=== PATIENT | male | born 1955 | race Asian ===

== ENCOUNTER 2019-03-19 09:05 | Inpatient (IN) | payer MEDICAID ==
[~2019-03-19] VITALS: Ht 167.6 cm; Wt 65.8 kg
[2019-03-19] VITALS (28 sets, daily range): BP systolic 56–115; BP diastolic 20–79
--- NOTE | 2019-03-19 09:19 | NUR ---
ED Nurse Note: Patient brought in by ambulance from home due to constand right lower abdominal pain for the past 2-3 weeks with nausea, loss of appetite. Patient unable to eat well due to increased abdominal pain, and did not have bowel movement for "long time" Patient states he lost "a lot of weight" over 1 year. Patient appears pale and weak. Denies any vomiting or BM with blood. Patient did not see any doctor for the past 10 years. Patient had 1st visit with PCP yesterday and PCP referred patient to [facility]. Placed patient on nuclear monitoring technician. Provided comfort measures. Bed in lowest positon.
--- NOTE | 2019-03-19 09:22 | NUR ---
ED Nurse Note: Pt brought into ER w/ c/o abdominal pain 8/10 for 2 weeks with nausea. Pt states he has felt weak over past year. Pt states history of stomach partial removal, but no cancer. Pt is alert and orientedx4, ambulatory. Pt set up on monitor.
[2019-03-19] MEDS ORDERED: Omnipaque-300 100ml vial INJ PRN (09:30)
[2019-03-19] MEDS ORDERED: Morphine Sulfate 4mg/ml Inj (IV USE ONLY) IVP ONE ×3 (09:30→16:45)
--- NOTE | 2019-03-19 09:30 | NUR ---
ED Nurse Note: Report given to GAMALIEL Gregory.
--- NOTE | 2019-03-19 09:31 | NUR ---
ED Nurse Note: Patient reports decreased pain when he lies on the left side.
[2019-03-19 09:37] LABS: HEMATOCRIT 49.2 % (42.0-52.0); HEMOGLOBIN 15.1 G/DL (14.2-18.0); MEAN CORPUSCULAR VOLUME 68 FL (80-99); PLATELET COUNT 677 K/UL (150-450); RED BLOOD COUNT 7.26 M/UL (4.70-6.10); RED CELL DISTRIBUTION WIDTH 15.8 % (11.6-14.8)
[2019-03-19 09:44] LABS: WHITE BLOOD COUNT 66.4 K/UL (4.8-10.8)
[2019-03-19 09:47] LABS: ANION GAP 21 mmol/L (5-15); BLOOD UREA NITROGEN 35 mg/dL (7-18); CALCIUM 8.4 MG/DL (8.5-10.1); CARBON DIOXIDE 16 MMOL/L (21-32); CHLORIDE 96 MMOL/L (98-107); CREATININE 2.6 MG/DL (0.55-1.30); POTASSIUM 4.9 MMOL/L (3.5-5.1); SODIUM 133 MMOL/L (136-145)
[2019-03-19 09:51] LABS: ALBUMIN 2.2 G/DL (3.4-5.0); ALBUMIN/GLOBULIN RATIO 0.6 (1.0-2.7); ALKALINE PHOSPHATASE 86 U/L (46-116); ASPARTATE AMINO TRANSFERASE 17 U/L (15-37); BILIRUBIN,TOTAL 0.5 MG/DL (0.2-1.0)
--- NOTE | 2019-03-19 10:00 | NUR ---
ED Nurse Note: Dr Jamison aware pt HR is 128.
--- NOTE | 2019-03-19 10:01 | NUR ---
ED Nurse Note: Dr Jamison notified BP 76/45 and HR 130. Pt placed in Trendelenburg and IV fluids given.
[2019-03-19 10:17] LABS: ALANINE AMINOTRANSFERASE 17 U/L (12-78)
--- NOTE | 2019-03-19 10:59 | Diagnostic Imaging Report ---
Indication: Abdominal pain Technique: Spiral acquisitions obtained through the abdomen and pelvis. No oral contrast utilized, per emergency room physician request No IV contrast utilized, due to renal insufficiency.. Multiplanar reconstructions were generated. Total dose length product 9 one mGycm. CTDIvol(s) 15 mGy. Dose reduction achieved using automated exposure control Comparison: Findings: Lack of enteric contrast limits assessment of the GI tract. There is marked wall thickening of much of the colon. This is particularly striking in the cecum and ascending colon as well as in the mid sigmoid colon, the latter demonstrating considerable pericolonic inflammatory change. There is also considerable wall thickening of the terminal ileum. The ascending colon is also distended appears to be filled with soft tissue, although no downstream obstructive pathology is evident. There is mesenteric root lymphadenopathy, particularly prominent in the right lower quadrant where nodes measure up to 2 cm in diameter. There is extensive infiltration of the mesenteric fat and considerable mesenteric venous congestion. There is a small to moderate amount of ascites fluid. No free intraperitoneal gas. Lack of IV contrast limits assessment of the solid organs. The liver demonstrates equivocal slight surface nodularity. No definite focal abnormality demonstrated. The gallbladder, bile ducts, pancreas, spleen, adrenals are unremarkable. The kidneys demonstrate multiple cysts bilaterally. There are also bilateral subcentimeter low-attenuation renal lesions which are too small to characterize. No renal or ureteral calculi, hydronephrosis, or hydroureter. No pelvic mass or adenopathy. There is a small right pleural effusion. The lung bases are otherwise clear. The bones demonstrate degenerative spondylosis changes. Impression: Wall thickening of much of the colon and also the distal ileum. Surrounding pericolonic inflammatory changes. Findings are suspicious for colitis/enteritis Distention of the cecum, which appears to be filled with soft tissue material. This may just represent thickened wall related to the colitis, but the possibility of neoplasm should also be considered. Right lower quadrant and generalized mesenteric root lymphadenopathy. May be reactive secondary to the enteric inflammation. However, the size and distribution of the nodes in the right lower quadrant raises concern for metastatic lymphadenopathy, particularly in view of the cecal changes described above Ascites. Could be secondary to the mesenteric/colonic changes, or could be a manifestation of liver disease among other possibilities. There is generalized congestion of the mesenteric fat. Equivocal slight hepatic surface nodularity, could indicate early cirrhotic change if real. Consider sonography for better characterization. Small right pleural effusion Bilateral renal cysts. Bilateral subcentimeter low-attenuation renal lesions, too small to characterize, most likely benign simple cysts. No further follow-up necessary. Degenerative spondylosis incidentally noted The CT scanner at [facility] is accredited by the [employer] and the scans are performed using protocols designed to limit radiation exposure to as low as reasonably achievable to attain images of sufficient resolution adequate for diagnostic evaluation.
--- NOTE | 2019-03-19 12:00 | NUR ---
ED Nurse Note: Dr Jamison aware that pt unable to urinate and refuses straight cath.
[2019-03-19] MEDS ORDERED: Morphine Sulfate 2mg/ml Inj(IV/IM USE ONLY) IVP ONE (13:00)
--- NOTE | 2019-03-19 13:06 | Emergency Room Report ---
History of Present Illness General Chief Complaint: Abdominal Pain Source: Patient, Family Member Present Illness HPI 63-year-old male presents ED for evaluation. Brought in by EMS from home. Complaining of abdominal pain and vomiting which started at 2 AM. Pain is 10 out of 10, sharp, nonradiating. Denies fevers or chills. Denies chest pain or shortness of breath. Family at bedside states that patient has prior history of partial gastrectomy. Was not feeling well so went to the doctor yesterday was told to go to [facility] but patient did not. No other aggravating relieving factors. Denies any other associated symptoms Allergies: Coded Allergies: No Known Allergies (Unverified , 03/19/19) Patient History Past Medical History: none Past Surgical History: other - gastrectomy Pertinent Family History: none Social History: Denies: smoking, alcohol use, drug use Immunizations: UTD Reviewed Nursing Documentation: PMH: Agreed; PSxH: Agreed Nursing Documentation-PMH Past Medical History: No History, Except For Hx Gastrointestinal Problems: Yes - partial gastrectomy Review of Systems All Other Systems: negative except mentioned in HPI Physical Exam Vital Signs Date Time Temp Pulse Resp B/P (MAP) Pulse Ox O2 Delivery O2 Flow Rate FiO2 03/19/19 09:01 97.9 120 16 110/76 (87) 97 Room Air Sp02 EP Interpretation: reviewed, normal General Appearance: alert, GCS 15, non-toxic, mild distress, cachetic, thin Head: normocephalic, atraumatic Eyes: bilateral eye normal inspection, bilateral eye PERRL ENT: hearing grossly normal, normal pharynx, no angioedema, normal voice Neck: full range of motion, supple/symm/no masses Respiratory: chest non-tender, lungs clear, normal breath sounds, speaking full sentences Cardiovascular #1: no edema, tachycardia Cardiovascular #2: 2+ carotid (R), 2+ carotid (L), 2+ radial (R), 2+ radial (L) , 2+ dorsalis pedis (R), 2+ dorsalis pedis (L) Gastrointestinal: normal bowel sounds, soft, non-distended, no guarding, no rebound, tenderness Rectal: deferred Genitourinary: normal inspection, no CVA tenderness Musculoskeletal: back normal, normal range of motion, gait/station normal, non- tender Neurologic: alert, motor strength/tone normal, oriented x3, sensory intact, responsive, speech normal Psychiatric: judgement/insight normal, memory normal, mood/affect normal, no suicidal/homicidal ideation Reflexes: 3+ bicep (R), 3+ bicep (L), 3+ tricep (R), 3+ tricep (L), 3+ knee (R) , 3+ knee (L) Skin: other - see nursing skin notes Lymphatic: no adenopathy Procedures Critical Care Time Critical Care Time i. I feel this is a highly complex case requiring extensive working including EKG/Rhythm strip, Xray/CT/US, Blood/urine lab work, repeat exams while in ED, and administration of strong opiates/narcotics for pain control, admission to hospital or close patient follow up. Total time: 60 min bedside evaluation and treatment excludes procedures (EKG). Reason for critical care: severe sepsis, hypotension, colitis, renal insufficiency Possible complications: hypotension, hypertension, AR, shock, arrhythmias, metabolic acidosis, end organ damage, respiratory failure. Interventions: Labs, IV fluids, pain meds, CT, lactic and cultures, broad- spectrum antibiotics, monitoring, reassessment of blood pressure Course: Presenting with abdominal pain. Tachycardic. Borderline hypotensive. Labs show market leukocytosis. BUN/creatinine elevated. Lactic 9. CT shows marked colitis. Given 30 cc/kg fluid bolus. Given broad-spectrum antibiotics. BP slowly improving. Tachycardia slowly improving with IV fluids Consultations: nursing staff, EMS, family Performed by: Dr Jamison Tolerated well condition = critical j. because of unstable vital signs this patient had a condition that could potentially threaten life or limb. I feel this is a critical patient who required my full attention while patient was considered critical. Total Critical Care Time excluding procedures was greater than 60 minutes Medical Decision Making Diagnostic Impression: Primary Impression: Colitis Additional Impressions: Severe sepsis Renal insufficiency ER Course Hospital Course 63 yo M presents to ED c/o abd pain, vomiting differential lSBO, appendicitis, pancreatitis Clinical course Patient placed on stretcher. After initial history and physical I ordered labs , IV fluids, pain meds, CT Labs -significant leukocytosis, BUN/creatinine elevated, lactic 9 CT A/P - colitis noted Given 30 cc/kg fluid bolus. Given broad-spectrum antibiotics. BP slowly improving with IV hydration. Tachycardia resolving. Case discussed with Dr. Clifford and he agreed to accept the patient to his service for further care and support I feel this is a highly complex case requiring extensive working including EKG/ Rhythm strip, Xray/CT/US, Blood/urine lab work, repeat exams while in ED, and administration of strong opiates/narcotics for pain control, admission to hospital or close patient follow up. Diagnosis - colitis, severe sepsis, renal insufficiency Patient admitted to SDU in critical condition Labs Test 03/19/19 09:15 03/19/19 10:09 03/19/19 11:00 White Blood Count 66.4 K/UL (4.8-10.8) Red Blood Count 7.26 M/UL (4.70-6.10) Hemoglobin 15.1 G/DL (14.2-18.0) Hematocrit 49.2 % (42.0-52.0) Mean Corpuscular Volume 68 FL (80-99) Mean Corpuscular Hemoglobin 20.8 PG (27.0-31.0) Mean Corpuscular Hemoglobin Concent 30.7 G/DL (32.0-36.0) Red Cell Distribution Width 15.8 % (11.6-14.8) Platelet Count 677 K/UL (150-450) Mean Platelet Volume 6.0 FL (6.5-10.1) Neutrophils (%) (Auto) % (45.0-75.0) Lymphocytes (%) (Auto) % (20.0-45.0) Monocytes (%) (Auto) % (1.0-10.0) Eosinophils (%) (Auto) % (0.0-3.0) Basophils (%) (Auto) % (0.0-2.0) Differential Total Cells Counted 100 Neutrophils % (Manual) 86 % (45-75) Lymphocytes % (Manual) 4 % (20-45) Monocytes % (Manual) 2 % (1-10) Eosinophils % (Manual) 1 % (0-3) Basophils % (Manual) 0 % (0-2) Metamyelocytes % 1 % (0-0) Myelocytes % 2 % (0-0) Band Neutrophils 4 % (0-8) Platelet Estimate Increased Platelet Morphology Normal Hypochromasia 1+ Anisocytosis 1+ Microcytosis 1+ Sodium Level 133 MMOL/L (136-145) Potassium Level 4.9 MMOL/L (3.5-5.1) Chloride Level 96 MMOL/L (98-107) Carbon Dioxide Level 16 MMOL/L (21-32) Anion Gap 21 mmol/L (5-15) Blood Urea Nitrogen 35 mg/dL (7-18) Creatinine 2.6 MG/DL (0.55-1.30) Estimat Glomerular Filtration Rate 25.1 mL/min (>60) Glucose Level 245 MG/DL (74-106) Calcium Level 8.4 MG/DL (8.5-10.1) Total Bilirubin 0.5 MG/DL (0.2-1.0) Aspartate Amino Transf (AST/SGOT) 17 U/L (15-37) Alanine Aminotransferase (ALT/SGPT) 17 U/L (12-78) Alkaline Phosphatase 86 U/L (46-116) Total Protein 6.0 G/DL (6.4-8.2) Albumin 2.2 G/DL (3.4-5.0) Globulin 3.8 g/dL Albumin/Globulin Ratio 0.6 (1.0-2.7) Lipase 167 U/L (73-393) Lactic Acid Level 9.00 mmol/L (0.4-2.0) 7.30 mmol/L (0.66-2.22) CT/MRI/US Diagnostic Results CT/MRI/US Diagnostic Results : Imaging Test Ordered: CT A/P Impression Findings: Lack of enteric contrast limits assessment of the GI tract. There is marked wall thickening of much of the colon. This is particularly striking in the cecum and ascending colon as well as in the mid sigmoid colon, the latter demonstrating considerable pericolonic inflammatory change. There is also considerable wall thickening of the terminal ileum. The ascending colon is also distended appears to be filled with soft tissue, although no downstream obstructive pathology is evident. There is mesenteric root lymphadenopathy, particularly prominent in the right lower quadrant where nodes measure up to 2 cm in diameter. There is extensive infiltration of the mesenteric fat and considerable mesenteric venous congestion. There is a small to moderate amount of ascites fluid. No free intraperitoneal gas. Lack of IV contrast limits assessment of the solid organs. The liver demonstrates equivocal slight surface nodularity. No definite focal abnormality demonstrated. The gallbladder, bile ducts, pancreas, spleen, adrenals are unremarkable. The kidneys demonstrate multiple cysts bilaterally. There are also bilateral subcentimeter low-attenuation renal lesions which are too small to characterize. No renal or ureteral calculi, hydronephrosis, or hydroureter. No pelvic mass or adenopathy. There is a small right pleural effusion. The lung bases are otherwise clear. The bones demonstrate degenerative spondylosis changes. Last Vital Signs Date Time Temp Pulse Resp B/P (MAP) Pulse Ox O2 Delivery O2 Flow Rate FiO2 03/19/19 12:42 97.2 122 18 96/67 99 Room Air Status: improved Disposition: ADMITTED INPATIENT Condition: Critical Scripts No Active Prescriptions or Reported Meds Referrals: NON PHYSICIAN (PCP) Swapnil Jamison MD Mar 19, 2019 13:06
--- NOTE | 2019-03-19 13:37 | GI Initial Consult Note ---
History of Present Illness General Reason for Hospitalization: Abdominal Pain Present Illness HPI The patient is a 63-year-old [place] male, admitted with leukocytosis and abdominal pain. The patient has had abdominal pains on and off for years, eating very little, worse in the past month and taking mostly liquids. He presents with the abdominal pain and some nausea and vomiting. He was found to have leukocytosis. CT scan in the emergency room showed wall thickening of much of the colon and distal ileum, surrounding pericolic inflammatory changes suspicious for colitis or enteritis, distention of the cecum and right lower quadrant generalized mesenteric root lymphadenopathy, ascites and slight hepatic surface nodularity could indicate cirrhotic changes, small right pleural effusion. For the above reasons, he is admitted to the hospital. The patient has not seen a doctor in quite some time. GI consulted for abdominal pain. patient seen aox4 with niece at bedside. according to the niece, the patient was diagnosed with a possible tumor many years ago and was advised to seek further medical attention by primary care physician. The patient did not seek further attention and has been dealing with abdominal pain for 2-3 years. Abdomen was assessed, soft, tender in all quadrants, non tympanic, mild rebounding and guarding noted. no peritoneal signs. A/P CT showed severe colitis. Patient has WBC 16. No history of endoscopy or colonoscopy. Home Meds No Active Prescriptions or Reported Meds Allergies: Coded Allergies: No Known Allergies (Unverified , 03/19/19) Patient History History Provided By: Patient, Family Member, Medical Record PMH Narrative Past Medical History: none Past Surgical History: other - gastrectomy Pertinent Family History: none Social History: Denies: smoking, alcohol use, drug use Immunizations: UTD Reviewed Nursing Documentation: PMH: Agreed; PSxH: Agreed Nursing Documentation-PM Past Medical History: No History, Except For Hx Gastrointestinal Problems: Yes - partial gastrectomy Review of Systems All Other Systems: negative except mentioned in HPI Physical Exam Vital Signs Date Time Temp Pulse Resp B/P (MAP) Pulse Ox O2 Delivery O2 Flow Rate FiO2 03/19/19 09:01 97.9 120 16 110/76 (87) 97 Room Air Sp02 EP Interpretation: reviewed, normal Labs Laboratory Tests Test 03/19/19 09:15 03/19/19 10:09 03/19/19 11:00 White Blood Count 66.4 K/UL (4.8-10.8) *H Red Blood Count 7.26 M/UL (4.70-6.10) H Hemoglobin 15.1 G/DL (14.2-18.0) Hematocrit 49.2 % (42.0-52.0) Mean Corpuscular Volume 68 FL (80-99) L Mean Corpuscular Hemoglobin 20.8 PG (27.0-31.0) L Mean Corpuscular Hemoglobin Concent 30.7 G/DL (32.0-36.0) L Red Cell Distribution Width 15.8 % (11.6-14.8) H Platelet Count 677 K/UL (150-450) H Mean Platelet Volume 6.0 FL (6.5-10.1) L Neutrophils (%) (Auto) % (45.0-75.0) Lymphocytes (%) (Auto) % (20.0-45.0) Monocytes (%) (Auto) % (1.0-10.0) Eosinophils (%) (Auto) % (0.0-3.0) Basophils (%) (Auto) % (0.0-2.0) Differential Total Cells Counted 100 Neutrophils % (Manual) 86 % (45-75) H Lymphocytes % (Manual) 4 % (20-45) L Monocytes % (Manual) 2 % (1-10) Eosinophils % (Manual) 1 % (0-3) Basophils % (Manual) 0 % (0-2) Metamyelocytes % 1 % (0-0) H Myelocytes % 2 % (0-0) H Band Neutrophils 4 % (0-8) Platelet Estimate Increased H Platelet Morphology Normal Hypochromasia 1+ Anisocytosis 1+ Microcytosis 1+ Sodium Level 133 MMOL/L (136-145) L Potassium Level 4.9 MMOL/L (3.5-5.1) Chloride Level 96 MMOL/L (98-107) L Carbon Dioxide Level 16 MMOL/L (21-32) L Anion Gap 21 mmol/L (5-15) H Blood Urea Nitrogen 35 mg/dL (7-18) H Creatinine 2.6 MG/DL (0.55-1.30) H Estimat Glomerular Filtration Rate 25.1 mL/min (>60) Glucose Level 245 MG/DL (74-106) H Calcium Level 8.4 MG/DL (8.5-10.1) L Total Bilirubin 0.5 MG/DL (0.2-1.0) Aspartate Amino Transf (AST/SGOT) 17 U/L (15-37) Alanine Aminotransferase (ALT/SGPT) 17 U/L (12-78) Alkaline Phosphatase 86 U/L (46-116) Total Protein 6.0 G/DL (6.4-8.2) L Albumin 2.2 G/DL (3.4-5.0) L Globulin 3.8 g/dL Albumin/Globulin Ratio 0.6 (1.0-2.7) L Lipase 167 U/L (73-393) Lactic Acid Level 9.00 mmol/L (0.4-2.0) H 7.30 mmol/L (0.66-2.22) H General Appearance: well appearing, no apparent distress, alert Head: normocephalic EENT: PERRL/EOMI, normal ENT inspection Neck: supple Respiratory: normal breath sounds, no respiratory distress Cardiovascular: normal rate Gastrointestinal: normal inspection, soft, normal bowel sounds, non-distended, tenderness Rectal: deferred Genitourinary: deferred Musculoskeletal: normal inspection, back normal Neurologic: alert, oriented x3, responsive, normal inspection Psychiatric: normal inspection, judgement/insight normal, memory normal Skin: normal inspection, normal color, no rash, warm/dry, palpation normal, well hydrated Lymphatic: normal inspection, no adenopathy Current Medications Current Medications Medications (Trade) Dose Ordered Sig/Trupti Route PRN Reason Start Time Stop Time Status Last Admin Dose Admin Iohexol (OMNIPAQUE-300 100ml) 100 ml NOW PRN INJ Radiology Procedure 03/19/19 09:30 03/21/19 09:22 Sodium Chloride 1,000 ml @ 200 mls/hr Q5H IV 03/19/19 13:00 04/18/19 12:59 03/19/19 13:04 GI: Plan Problems: (1) Colitis (2) Severe sepsis Plan severe sepsis colitis on APCT history of ?tumor per patient family unintentional weight loss diarrhea dehydration CORAL electrolyte imbalance will need colonoscopy to evaluate colitis once stable obtain chest CT check CEA, may need oncology NPO IV hydration + electrolyte correction ppi fu jama culture OB stool r/o GI bleed broad spec abx recommend ID consult will follow on a daily basis with any additional recommendations Discussed with Dr. Munguia. Thank you for this patient referral, we will follow. The patient was seen and examined at bedside and all new and available data was reviewed in the patients chart. I agree with the above findings, impression and plan. (Patient seen earlier today. Signature stamp does not reflect patient encounter time.). - MD Magdi GrayuydavidSan Carlos Apache Tribe Healthcare CorporationAlbert DAVID Mar 19, 2019 13:37
[2019-03-19] MEDS ORDERED: Lidocaine 2% Visc 15ml soln ORAL ONE (14:00)
[2019-03-19] MEDS ORDERED: Dicyclomine HCl 10mg/5ml oral soln ORAL ONE (14:00)
[2019-03-19] MEDS ORDERED: fentaNYL 100 mcg/2 mL IV ONE (14:00)
[2019-03-19] MEDS ORDERED: Mylanta II UD 30ml ORAL ONE (14:00)
--- NOTE | 2019-03-19 15:32 | Diagnostic Imaging Report ---
Clinical Indication: Shortness of breath Technique: Spiral acquisitions obtained through the chest. No IV contrast utilized, reason not stated. Multiplanar reconstructions generated. Total dose length product 648 mGycm. CTDIvol(s) 13 mGy. Dose reduction achieved using automated exposure control Comparison: none Findings: Small right, equivocal trace left pleural effusions are demonstrated. There is mild as well as some linear interstitial opacities parenchymal groundglass opacity at the lung bases. No dense consolidation. No masses or nodules. Compressive posterior atelectatic changes are also seen at the lung bases. Some atelectasis or scarring is seen in the inferior lingula. The right main pulmonary artery is dilated, measuring 3 cm in diameter. The ascending thoracic aorta is ectatic but not frankly aneurysmal, measuring 3.8 cm in diameter. The included thyroid is unremarkable. No hilar or mediastinal mass or adenopathy. There is minimal anterior wall pericardial thickening. There is a small sliding-type hiatal hernia. The remainder of the esophagus is unremarkable. No axillary or chest wall mass or adenopathy. The bones demonstrate degenerative thoracic spondylosis. Abdominal findings are described in separate abdomen pelvis CT report performed earlier Impression: Small right, equivocal trace left pleural effusions Basilar pulmonary groundglass opacities and some linear interstitial opacities. Nonspecific, could represent areas of edema or inflammation Dilated right main pulmonary artery, concerning for pulmonary arterial hypertension Minimal anterior wall pericardial thickening Incidental findings as noted, including small sliding-type hiatal hernia, degenerative thoracic spondylosis The CT scanner at [facility] is accredited by the [employer] and the scans are performed using protocols designed to limit radiation exposure to as low as reasonably achievable to attain images of sufficient resolution adequate for diagnostic evaluation.
--- NOTE | 2019-03-19 16:33 | NUR ---
Dr Demarco notified pt pain still 10/10 and pt is trying to climb out of bed continually.
--- NOTE | 2019-03-19 16:37 | NUR ---
ED Nurse Note: Accucheck at [id number] 143. MD notified.
--- NOTE | 2019-03-19 17:15 | NUR ---
ED Nurse Note: Dr Demarco notified that pt is more drowsy, pt BP dropping t0 60/27. HR 114. Dr will input orders.
--- NOTE | 2019-03-19 17:30 | History and Physical Report ---
DATE OF ADMISSION: 03/19/2019 CHIEF COMPLAINT AND REASON FOR HOSPITALIZATION: The patient is a 63-year-old English male, admitted with leukocytosis and abdominal pain. HISTORY OF PRESENT ILLNESS: The patient has had abdominal pains on and off for years, eating very little, worse in the past month and taking mostly liquids. He presents with the abdominal pain and some nausea and vomiting. He was found to have leukocytosis. CT scan in the emergency room showed wall thickening of much of the colon and distal ileum, surrounding pericolic inflammatory changes suspicious for colitis or enteritis, distention of the cecum and right lower quadrant generalized mesenteric root lymphadenopathy, ascites and slight hepatic surface nodularity could indicate cirrhotic changes, small right pleural effusion. For the above reasons, he is admitted to the hospital. The patient has not seen a doctor in quite some time. MEDICATIONS: None. ALLERGIES: None known. PAST SURGICAL HISTORY: He had stomach surgery in his 20s, possibly from peptic ulcer that is perforated. HABITS: He is a cigarette smoker most of his adult life and has not been smoking for the last 2 weeks. 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 FAMILY HISTORY: Positive for multiple members with heart disease. SYSTEM REVIEW: HEAD, EYES, EARS, NOSE, AND THROAT: Vision and hearing is good. ENDOCRINE: No awareness of diabetes or thyroid disease. PULMONARY: No asthma or TB. CARDIAC: No angina, GA, palpitations. GASTROINTESTINAL: See above. GENITOURINARY: No dysuria, hematuria, or kidney stones. MUSCULOSKELETAL: No chronic joint pain or swelling. NEUROLOGIC: No CVA or syncope. PHYSICAL EXAMINATION: GENERAL: The patient is a thin alert man, lying in bed, in the emergency department. BMI 22.6. VITAL SIGNS: Temperature 97.2, pulse 122, respirations 18, blood pressure 96/67. HEAD, EYES, EARS, NOSE, AND THROAT: Sclerae are nonicteric. Ocular motions intact in all directions. Oral mucosa is dry. NECK: No adenopathy. LUNGS: Clear. HEART: Rhythm is regular and tachycardiac No murmur. ABDOMEN: Minimally distended. I am unable to feel liver or spleen. There is mild generalized tenderness. No rebound. EXTREMITIES: No edema, cyanosis, or clubbing. NEUROLOGIC: He is alert and oriented. Cranial nerves are intact. PERTINENT LABORATORY DATA: White count of , neutrophils 86%, hemoglobin 15.1, hematocrit 49.2, there is a left shift. BUN is 35, creatinine 2.6, sodium 133, potassium 4.9, chloride 92, CO2 16. Lactic acid 9 and 7.3, serially. AST and ALT are normal as alkaline phosphatase. Albumin is 2.2. IMPRESSION: 1. Abdominal pain with abnormal CT suggesting colitis . Concern for occult malignancy, lymphoma, or leukemia. 2. Lactic acidosis. 3. Elevated BUN and creatinine likely acute kidney injury secondary to dehydration, rule out some component of chronic kidney disease. PLAN: The patient will be hydrated. Treat his metabolic acidosis. We will get GI and surgical consultation. Put him on broad-spectrum antibiotics. He will need colonoscopy once stable and may need to rule out malignancy. The patient's condition is complex and will require several days of hospitalization, monitoring progress, and assessing all of the above factors. Detailed orders given. Kyle Clifford M.D. DR: Michele JOB#: [id number] CC:
--- NOTE | 2019-03-19 17:41 | NUR ---
ED Nurse Note: explained central line procedure to pt and . they verbalized understanding.
--- NOTE | 2019-03-19 18:16 | Emergency Room Report ---
Physical Exam Vital Signs Date Time Temp Pulse Resp B/P (MAP) Pulse Ox O2 Delivery O2 Flow Rate FiO2 03/19/19 09:01 97.9 120 16 110/76 (87) 97 Room Air Medical Decision Making Diagnostic Impression: Primary Impression: Colitis Additional Impressions: Severe sepsis Renal insufficiency ER Course Briefly, this 63-year-old male admitted to the stepdown unit for colitis and severe sepsis. I was alerted by nursing staff that the patient was altered and trying to get out of bed and very confused. He was hypotensive with systolic pressures in the 60s. He had been hypotensive earlier but responding to IV fluids. Significantly elevated lactate is downtrending and a repeat is pending. Showing significant acidosis with a pH of 7.10. Continue IV fluids but patient had a right internal jugular central line placed and Levophed is started for BP support. Upgrading to ICU. Admitting team notified. Chest X-Ray Diagnostic Results Chest X-Ray Diagnostic Results : Chest X-Ray Ordered: Yes # of Views/Limited/Complete: 1 View Indication: Other - Line placement EP Interpretation: Yes Interpretation: other - Right IJ tip projecting over the right atrium Impression: Other - Right IJ in place Electronically Signed by: Electronically signed by Dr. Nino Demarco Last Vital Signs Date Time Temp Pulse Resp B/P (MAP) Pulse Ox O2 Delivery O2 Flow Rate FiO2 03/19/19 17:56 66/27 03/19/19 12:42 97.2 122 18 99 Room Air Disposition: ADMITTED INPATIENT Condition: Critical Scripts No Active Prescriptions or Reported Meds Referrals: NON PHYSICIAN (PCP) Procedures Central Line Central Line : Consent: Emergent Central Line Lumen: triple Maximal Sterile Barrier Tech: yes cap, yes mask, yes sterile gown, yes sterile gloves, yes large sterile sheet, yes hand hygiene, yes chlorhexidine prep No Max Barrier Tech Because: emergency insertion Central Line Postion: internal jugular (R) Complications: none Central Line Post Position: sutured, good blood return, position confirmed w / CXR Attempts: One Patient Tolerated: Well Complications: None Nino Demarco MD Mar 19, 2019 18:16
[2019-03-19] MEDS ORDERED: Sodium Bicarbonate 50ml Carp IV ONE (18:30)
--- NOTE | 2019-03-19 18:55 | NUR ---
ER DISCHARGE NOTE: Patient is cleared to be transferred per ERMD, pt is aox4, on room air. pt took all belongings. Report given to [facility]. Pt set on monitor. 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
--- NOTE | 2019-03-19 19:05 | NUR ---
HAND-OFF: Report given to GAMALIEL Abdi .Pt was received from ER for abdominal bleeding and currently on Levophed at 14mcg/hr with SBP at 79 at this time endorsed to next nurse for admission protocole.
--- NOTE | 2019-03-19 19:06 | NUR ---
NURSE NOTES: Admitted 63 year old male patient from ER. Endorsement received from GAMALIEL Arnett. Patient awake, alert. Telugu speaking. On room air. No shortness of breath. Sinus tach on the monitor. Afebrile. With right IJ TLC, on Levophed 14mcg/min. SBP at 70s, levophed titrated up. Right AC g20 heplock and left AC g20 heplock. Skin is intact. Placed in bed. Oriented to room, staff, call light. Educated patient how to use call light for assistance, and not to get up from the bed unassisted. Bed locked and in low position. Call light within reach. Bed alarm on.
--- NOTE | 2019-03-19 19:41 | Diagnostic Imaging Report ---
EXAM: XR Chest, 1 View CLINICAL HISTORY: S/P LINE TECHNIQUE: Frontal view of the chest. COMPARISON: No relevant prior studies available. FINDINGS: Lungs: Possible mild pulmonary infiltrates/edema, versus hypoventilation. Pleural space: Unremarkable. No pneumothorax. Heart: Unremarkable. Mediastinum: Unremarkable. Bones/joints: Unremarkable. Tubes, lines and devices: Right IJ line in right atrium approximately 8 cm beyond SVC. IMPRESSION: 1. Right IJ line in right atrium approximately 8 cm beyond SVC. 2. Possible mild pulmonary infiltrates/edema, versus hypoventilation.
--- NOTE | 2019-03-19 20:00 | NUR ---
NURSE NOTES: Offered patient urinal, patient attempted to pee however patient unsuccessful. Bladder scanner done, sghows 350ml urine in the bladder.
--- NOTE | 2019-03-19 20:20 | NUR ---
NURSE NOTES: Called Dr. Clifford for admission orders. Also informed MD regarding urine retention and SBP still at 70s mmHg, levophed at max dose. Orders received and read back. MD verified the orders.
[2019-03-19] MEDS ORDERED: Pantoprazole Inj IVP SCH (21:00)
[2019-03-19] MEDS ORDERED: Heparin 5000 units/ml inj SUBQ SCH (21:00)
[2019-03-19] MEDS: Norepinephrine Bitartrate 8 MG in D5W 500ml 492 ML IV SCH (21:22)
--- NOTE | 2019-03-19 22:30 | NUR ---
NURSE NOTES: NGT in position per X-ray. Connected to low intermittent suction.
--- NOTE | 2019-03-19 22:44 | Diagnostic Imaging Report ---
EXAM: XR Abdomen, 1 View CLINICAL HISTORY: NGT TECHNIQUE: Frontal supine view of the abdomen/pelvis. COMPARISON: No relevant prior studies available. FINDINGS/IMPRESSION: NG tube in the stomach.
[2019-03-19] MEDS: Sodium Bicarbonate 150 ML in D5W 1000ml 1,000 ML IV SCH (22:45)
--- NOTE | 2019-03-19 23:00 | NUR ---
NURSE NOTES: Patient's BP still on the 70s. Called Dr. Clifford, informed him that patient SBP on the 70s, max dose on levophed, 1 L NS bolus already given and currently on 2nd vial of Albumin infusing. Also informed him that urine output since 1900H is 100ml. Received new order for Dr. Suero's consultation.
--- NOTE | 2019-03-19 23:04 | NUR ---
NURSE NOTES: Called Dr. Suero on his emergency line, left a message. Awaiting for return call.
--- NOTE | 2019-03-19 23:20 | NUR ---
NURSE NOTES: Received a return call from Dr. Suero. Informed him that patient's BP is in the 70s, already on max levophed, 2nd vial of albumin currently infusing and 1 liter of NS bolus was given as per Dr. Clifford's order. Also informed him that patient is not intubated, currently on room air and alert. As per Dr Suero, continue to monitor patient's BP since he's alert. No new order at this time.
[2019-03-20] VITALS (23 sets, daily range): BP systolic 60–99; BP diastolic 14–76
[2019-03-20] MEDS ORDERED: Gentamicin inj 160 MG in NS 110 ML IVPB ONE ×2
[2019-03-20] MEDS ORDERED: Piperacillin/Tazobactam 3.375 GM in NS 110 ML IVPB SCH (01:00)
[2019-03-20] MEDS: Norepinephrine Bitartrate 8 MG in D5W 500ml 492 ML IV SCH (01:12)
--- NOTE | 2019-03-20 02:00 | NUR ---
NURSE NOTES: Patient asleep at this time. Appears comfortable.
[2019-03-20] MEDS: Sodium Bicarbonate 150 ML in D5W 1000ml 1,000 ML IV SCH (03:05)
--- NOTE | 2019-03-20 05:00 | NUR ---
NURSE NOTES: Patient reported having shortness of breath. Started on venturi mask 10L, saturation 94-96%. RT at bedside taking ABG sample.
--- NOTE | 2019-03-20 05:20 | NUR ---
NURSE NOTES: Patient becoming restless and agitated. Attempting to get out of bed. 2 RTs at bedside still trying to get a blood sample for ABG
--- NOTE | 2019-03-20 05:40 | NUR ---
CODE BLUE: Patient become unresponsive. No pulse. at bedside. See Code sheet which remains on paper.
[2019-03-20 05:43] LABS: HEMATOCRIT 41.8 % (42.0-52.0); HEMOGLOBIN 12.5 G/DL (14.2-18.0); MEAN CORPUSCULAR VOLUME 68 FL (80-99); PLATELET COUNT 272 K/UL (150-450); RED BLOOD COUNT 6.18 M/UL (4.70-6.10); RED CELL DISTRIBUTION WIDTH 15.8 % (11.6-14.8)
[2019-03-20 06:00] LABS: INR 2.5 (0.9-1.1)
--- NOTE | 2019-03-20 06:07 | Emergency Room Report ---
History of Present Illness General Chief Complaint: Abdominal Pain Source: Patient, Family Member, Medical Record Present Illness Allergies: Coded Allergies: No Known Allergies (Unverified , 03/19/19) Nursing Documentation-[facility] Past Medical History: No History, Except For Hx Cardiac Problems: No Hx Cancer: No Hx Gastrointestinal Problems: Yes - partial gastrectomy Hx Neurological Problems: No Hx Neurologic Surgery: No Physical Exam Vital Signs Date Time Temp Pulse Resp B/P (MAP) Pulse Ox O2 Delivery O2 Flow Rate FiO2 03/19/19 09:01 97.9 120 16 110/76 (87) 97 Room Air 03/19/19 21:00 2.0 Procedures CPR/Code Blue CPR/Code Blue Narrative I was called upstairs to a CODE BLUE Upon arrival the patient is apneic being bagged and ventilated Patient has no palpable pulses Pupils are fixed and dilated at 4 mm and CPR was in progress Refer to the code sheet for full specifics however patient had multiple rounds of epinephrine Atropine, sodium bicarbonate Accu-Chek was over 200 After airway intubation code continued Patient has remained asystole throughout the code and at this time appears that all attempts are futile Patient was pronounced at 05 57 I did notify the Intubation Intubation : Consent: Emergent Intubation Method: orotracheal Tube Size (cm): 8.0 Breath Sounds after Intubation: equal Intubation Complications: no complications Post Intubation Xray: No Attempts: One Patient Tolerated: Well Complications: None Medical Decision Making Diagnostic Impression: Primary Impression: Colitis Additional Impressions: Severe sepsis Renal insufficiency Last Vital Signs Date Time Temp Pulse Resp B/P (MAP) Pulse Ox O2 Delivery O2 Flow Rate FiO2 03/20/19 05:00 128 34 87/69 (75) 97 03/20/19 04:00 97.9 03/20/19 04:00 Nasal Cannula 2.0 Disposition: ADMITTED INPATIENT Condition: Critical Scripts No Active Prescriptions or Reported Meds Referrals: NON PHYSICIAN (PCP) Cristi Smith DO Mar 20, 2019 06:07
[2019-03-20 06:27] LABS: APPEARANCE,URINE CLEAR; BILIRUBIN, URINE NEGATIVE (NEGATIVE); COLOR,URINE BROWN; GLUCOSE, URINE (UA) NEGATIVE (NEGATIVE); KETONES,URINE 1+ (NEGATIVE); LEUKOCYTE ESTERASE ,URINE NEGATIVE (NEGATIVE); NITRITE,URINE NEGATIVE (NEGATIVE); PH,URINE 5 (4.5-8.0); PROTEIN,URINE 2+ (NEGATIVE); UROBILINOGEN,URINE NORMAL MG/DL (0.0-1.0)
[2019-03-20 06:27] LABS: ALBUMIN 3.1 G/DL (3.4-5.0); ALBUMIN/GLOBULIN RATIO 3.1 (1.0-2.7); ALKALINE PHOSPHATASE 64 U/L (46-116); ANION GAP 14 mmol/L (5-15); BILIRUBIN,TOTAL 0.8 MG/DL (0.2-1.0); BLOOD UREA NITROGEN 41 mg/dL (7-18); CARBON DIOXIDE 22 MMOL/L (21-32); CHLORIDE 100 MMOL/L (98-107); CKMB 16.3 NG/ML (0.0-3.6); CREATININE 2.5 MG/DL (0.55-1.30); POTASSIUM 4.5 MMOL/L (3.5-5.1); SODIUM 136 MMOL/L (136-145)
--- NOTE | 2019-03-20 06:40 | NUR ---
NURSE NOTES: Called and spoke with Dr. Clifford and updated regarding about the patient. [facility] case was notified by charge nurse, not a mental retardation nurse's case. [facility] notified, case # [id number]
[2019-03-20 06:46] LABS: CALCIUM 6.2 MG/DL (8.5-10.1)
[2019-03-20 06:48] LABS: ALANINE AMINOTRANSFERASE 2935 U/L (12-78); ASPARTATE AMINO TRANSFERASE 6172 U/L (15-37)
[2019-03-20] MEDS ORDERED: 1/2 NS 1000ml IV ONE (07:10)
[2019-03-20] MEDS ORDERED: Tubing IV Secondary IV ONE (07:10)
[2019-03-20] MEDS ORDERED: NS 275ml ONE (07:10)
[2019-03-20] MEDS ORDERED: Atropine Inj 1mg/10ml Syr ONE (07:10)
[2019-03-20] MEDS ORDERED: Sodium Bicarbonate 50ml Carp ONE (07:10)
[2019-03-20] MEDS ORDERED: Pantoprazole Inj IVP SCH (09:00)
[2019-03-20] MEDS ORDERED: Dyna-Hex 2% Top Sol 2oz TOPIC SCH (20:00)
--- NOTE | 2019-03-20 21:46 | Discharge Summary ---
DATE OF ADMISSION: 03/19/2019 DATE OF DISCHARGE: 03/20/2019 PERTINENT HISTORY: The patient presents with abdominal pain which has been going on for some time. He also had severe leukocytosis. He did have imaging, CT scan in the emergency room showing wall thickening much of the colon and the distal ilium, surrounding pericolonic inflammatory changes suspicious for colitis enteritis, possibility of neoplasm should be considered with distention of the cecum which appears to be filled with soft tissue material, generalized mesenteric root lymphadenopathy raises concern for metastatic lymphadenopathy. The patient presented with the above and findings as per the dictated H and P. COURSE IN THE HOSPITAL: The patient rapidly when into septic shock despite large volumes of fluids, antibiotics, Levophed, and supportive care. He did have marked elevation of liver enzymes, CPK and troponin. He developed cardiopulmonary arrest and . FINAL DIAGNOSES: 1. Septic shock. 2. Probable enterocolitis. 3. Possible neoplasm of the colon or lymphoma, no pathology obtained. 4. Marked leukocytosis, possible leukemia versus leukemoid reaction. 5. Acute myocardial infarction. 6. Cardiopulmonary arrest. Kyle Clifford M.D. DR: Michele JOB#: [id number] CC:
== END 2019-03-20 07:11 | disposition expired | DRG 871 ==
LOC: EDBD 09:05 → EMR 10:06 → ICU 10:32 → EDBEDREQSVC 10:40 → EDBEDREQ 10:40 → EDBEDREQSVC 17:45 → EDBEDREQ 17:45
DX: A41.9 Sepsis, unspecified organism (principal); I21.9 Acute myocardial infarction, unspecified; N17.9 Acute kidney failure, unspecified; C95.90 Leukemia, unspecified not having achieved remission; R65.20 Severe sepsis without septic shock; Z90.3 Acquired absence of stomach [part of]; K52.9 Noninfective gastroenteritis and colitis, unspecified; D49.0 Neoplasm of unspecified behavior of digestive system; E86.0 Dehydration; E87.8 Other disorders of electrolyte and fluid balance, not elsewhere classified; R63.4 Abnormal weight loss; Z87.891 Personal history of nicotine dependence
CPT/HCPCS: 36415; 36600; 71045; 71250; 74018; 74176; 80053; 81003; 82378; 82550; 82553; 82570; 82803; 82962; 83605; 83690; 83735; 84100; 84300; 84484; 85007; 85025; 85610; 85730; 87040; 87081; 87086; 92950; 93005; 96361; 96365; 96375; 96376; 99291; J0171; J2405; J7030